=== PATIENT | male | born 1945 | race Caucasian/White ===

== ENCOUNTER 2018-10-21 20:26 | Emergency (ER) | payer MEDICARE, BC ==
[~2018-10-21 20:26] MED LIST: Iopamidol 370 76% 100 ML VIAL ONE
[2018-10-21] MEDS ORDERED: Aspirin Chewable 81 MG TAB ONE (20:32)
[2018-10-21 20:40] LABS: #Basophils 0.1 thou/uL (0.0-0.2); #Eosinphils 0.4 thou/uL (0.0-0.7); #Lymphocytes 2.1 thou/uL (1.20-3.40); #Monocytes 0.7 thou/uL (0.11-0.59); #Neutrophils 5.4 thou/uL (1.40-6.50); %Basophils 1.1 % (0.0-1.0); %Eosinophils 4.1 % (0.0-10.0); %Lymphocytes 24.3 % (21.0-51.0); %Monocytes 8.1 % (0.0-10.0); %Neutrophils 62.5 % (42.0-75.0); Hemoglobin 11.2 g/dL (14.0-18.0); Mean Corpuscular HGB CONC 33.3 g/dL (32.0-36.0); Mean Corpuscular Hemoglobin 31.2 pg (27.0-31.0); Mean Corpuscular Volume 93.7 fL (78.0-98.0); Mean Platelet Volume 4.5 fL (7.4-10.4); Platelet Count 548 thou/uL (130-400); RBC Distribution Width 11.7 % (11.5-14.5); Red Blood Cell (RBC) Count 3.58 mill/uL (4.70-6.10); White Blood Cell (WBC) Count 8.6 thou/uL (4.8-10.8)
[2018-10-21 20:49] LABS: INR-International Normal Ratio 1.2; PTT 32.5 SEC (22.9-36.1); Prothrombin Time 14.8 SEC (12.0-14.7)
--- NOTE | 2018-10-21 20:49 | RAD ---
XR Chest 1 View Portable History: Chest pain Comparison: Radiograph October 11, 2018 Findings: Increased pericardial fat. Lungs are clear. No pneumothorax. Multiple midline sternotomy wi res. No acute osseous abnormality. Impression: Chronic findings. No acute intrathoracic abnormality.
[2018-10-21 20:57] LABS: ALT (SGPT) 28 U/L (8-55); AST (SGOT) 22 U/L (5-34); Albumin 3.6 g/dL (3.4-4.8); Alkaline Phosphatase 86 U/L (40-150); Anion Gap 15 mmol/L (10-20); BUN (Urea Nitrogen) 17 mg/dL (8.4-25.7); Bilirubin, Total 0.4 mg/dL (0.2-1.2); Calc. Creatinine Clearance 0 mL/min (70-130); Calcium 8.6 mg/dL (7.8-10.44); Carbon Dioxide 23 mmol/L (23-31); Chloride 101 mmol/L (98-107); Estimated GFR-MDRD 74; Globulin 3.1 g/dL (2.4-3.5); Glucose 112 mg/dL (83-110); Lipase 18 U/L (8-78); Protein, Total 6.7 g/dL (5.8-8.1); Sodium 135 mmol/L (136-145)
--- NOTE | 2018-10-21 21:54 | CT ---
CTA Angio Chest W WO Con History: Chest pain Comparison: Radiograph same day Findings: CT angiogram chest performed after the intravenous administration of contrast. 3-D renderin g provided. No proximal segmental pulmonary arterial filling defect. There is a relatively recent median sternoto my without evidence of a retrosternal fluid collection. Small left pleural effusion. Mild atelectasis in within both lung bases. No mediastinal adenopathy. Mild paraseptal emphysema. No consolidation. Calcified mediastinal lymph nodes. Impression: 1. No proximal segmental pulmonary arterial filling defect. 2. Relatively recent median sternotomy without evidence of a retrosternal fluid collection or mediast initis. Expected mild infiltration of the mediastinal fat. 3. Small left pleural effusion. 4. Mild emphysema.
== END 2018-10-21 21:38 | disposition short-term general hospital (02) ==
LOC: BURERS 20:26
DX: R07.2 Precordial pain (principal); E78.5 Hyperlipidemia, unspecified; I10 Essential (primary) hypertension; F41.9 Anxiety disorder, unspecified; Z79.899 Other long term (current) drug therapy; Z79.82 Long term (current) use of aspirin
CPT/HCPCS: 71045; 71275; 80053; 83690; 83880; 84484; 85025; 85379; 85610; 85730; 93005; Q9967